=== PATIENT | female | born 1955 | race Caucasian/White ===

== ENCOUNTER 2017-09-09 14:27 | Emergency (ER) | payer MEDICARE, MEDICAID ==
[~2017-09-09] VITALS: Ht 172.7 cm; Wt 63.2 kg
[~2017-09-09 14:27] MED LIST: ALPR-624 PO; CELE-54 PO; DOXE50CA4 PO; ONDA4TAB6 PO; OXYC-150 PO; TIZA4CAP6 PO
[2017-09-09 14:47] VITALS: BP 145/87
== END 2017-09-09 15:49 | disposition home or self-care (01) ==
LOC: ER 14:28
DX: G89.29 Other chronic pain (principal); M25.561 Pain in right knee; Z90.49 Acquired absence of other specified parts of digestive tract; Z98.890 Other specified postprocedural states; Z88.8 Allergy status to other drugs, medicaments and biological substances; Z79.899 Other long term (current) drug therapy
CPT/HCPCS: 99281